=== PATIENT | female | born 1950 | race Caucasian/White ===

== ENCOUNTER → 2016-09-19 | Outpatient (CLI) | payer BC ==
--- NOTE | 2016-09-19 08:52 | REPMRS ---
Patient History The patient states she had a clinical breast exam in 09/2016. Family history of breast cancer in paternal cousin at age 50 or over. Took hormonal contraceptives for 1 year. Digital Woman Screen Mammo: September 19, 2016 - Exam #: [id number] Bilateral CC and MLO view(s) were taken. Technologist: Iris De Leon, Technologist Prior study comparison: September 18, 2015, digital woman screen mammo performed at [facility]. September 16, 2014, digital woman screen mamm[facility]. August 09, 2013, digital woman screen mammo performed at [facility]. FINDINGS: There are scattered fibroglandular densities. There has been no change in the appearance of the mammogram from the prior studies. There is a mild amount of scattered fibroglandular density which is fairly symmetric. There is no interval development of dominant mass, architectural distortion, or clustered microcalcification suggestive of malignancy. ASSESSMENT: BI-RADS/ACR category 1 mammogram. Negative. Recommendation Routine screening mammogram in 1 year (for women over age 40). This mammogram was interpreted with the aid of an FDA-approved computer-aided dectection system. Electronically Signed By: Marcelo Gaspar MD 09/19/16 0851
== END ==
LOC: M WHC 08:01
PROVIDERS: ATTEND Nurse Practitioner Women's Health
DX: Z12.31 Encounter for screening mammogram for malignant neoplasm of breast (principal); Z80.3 Family history of malignant neoplasm of breast; Z92.0 Personal history of contraception

== ENCOUNTER → 2017-02-28 | Outpatient (CLI) | payer BC, MEDICARE ==
--- NOTE | 2017-02-28 17:14 | REP ---
Left foot series: Four views: History: Pain. Findings: Four views of the left foot show overall normal mineralization. No bony erosive change is seen. No fracture is noted. There is soft tissue swelling along the medial aspect of the IP joint of the great toe with an overlying dressing. No soft tissue gas or opaque foreign body seen. Impression: No acute abnormality. Signed by Lawson Gaspar MD 03/01/2017 08:01 A
== END ==
LOC: M WUC 16:42
PROVIDERS: ATTEND Nurse Practitioner Family
DX: M79.672 Pain in left foot (principal)

== ENCOUNTER → 2017-03-10 | Outpatient (REF) | payer BC, MEDICARE ==
[2017-03-10 13:53] LABS: ALBUMIN 4.1 GM/DL (3.2-5.2); ALBUMIN/GLOBULIN RATIO 1.32 (1.00-1.93); ALKALINE PHOSPHATASE 73 U/L (45-117); ALT/SGPT 42 U/L (12-78); ANION GAP 10 MEQ/L (8-16); AST/SGOT 18 U/L (15-37); BILIRUBIN,TOTAL 0.3 MG/DL (0.2-1.0); BLOOD UREA NITROGEN 10 MG/DL (7-18); CALCIUM LEVEL 8.7 MG/DL (8.8-10.2); CARBON DIOXIDE LEVEL 26 MEQ/L (21-32); CHLORIDE LEVEL 107 MEQ/L (98-107); CHOLESTEROL LEVEL 208 MG/DL (<200); CREATININE FOR GFR 0.68 MG/DL (0.55-1.02); GLOMERULAR FILTRATION RATE > 60.0 (>45); GLUCOSE, FASTING 97 MG/DL (80-110); POTASSIUM SERUM 4.7 MEQ/L (3.5-5.1); SODIUM LEVEL 143 MEQ/L (136-145); TOTAL PROTEIN 7.2 GM/DL (6.4-8.2); TRIGLYCERIDES LEVEL 154 MG/DL (<150)
== END ==
LOC: M LAB REF 11:13
PROVIDERS: ATTEND Nurse Practitioner Family
DX: E78.2 Mixed hyperlipidemia (principal); E55.9 Vitamin D deficiency, unspecified

== ENCOUNTER → 2017-09-21 | Outpatient (CLI) | payer MEDICARE | LOC: M WHC 08:12 | DX: Z78.0 Asymptomatic menopausal state (principal); R93.7 Abnormal findings on diagnostic imaging of other parts of musculoskeletal system | CPT/HCPCS: 77080 ==

== ENCOUNTER → 2017-09-21 | Outpatient (CLI) | payer MEDICARE | LOC: M WHC 08:07 | DX: Z12.31 Encounter for screening mammogram for malignant neoplasm of breast (principal); Z01.419 Encounter for gynecological examination (general) (routine) without abnormal findings (principal); Z92.0 Personal history of contraception; Z12.12 Encounter for screening for malignant neoplasm of rectum; Z78.0 Asymptomatic menopausal state | CPT/HCPCS: 77067 ==

== ENCOUNTER → 2018-04-12 | Outpatient (REF) | payer MEDICARE ==
[2018-04-12 12:17] LABS: ALBUMIN 4.1 GM/DL (3.2-5.2); ALBUMIN/GLOBULIN RATIO 1.41 (1.00-1.93); ALKALINE PHOSPHATASE 76 U/L (45-117); ALT/SGPT 33 U/L (12-78); ANION GAP 8 MEQ/L (8-16); AST/SGOT 21 U/L (7-37); BILIRUBIN,TOTAL 0.6 MG/DL (0.2-1.0); BLOOD UREA NITROGEN 12 MG/DL (7-18); CALCIUM LEVEL 9.2 MG/DL (8.8-10.2); CARBON DIOXIDE LEVEL 29 MEQ/L (21-32); CHLORIDE LEVEL 105 MEQ/L (98-107); CHOLESTEROL LEVEL 230 MG/DL (<200); CHOLESTEROL RISK RATIO 3.965 (<5); CREATININE FOR GFR 0.71 MG/DL (0.55-1.30); GLOMERULAR FILTRATION RATE > 60.0 (>45); GLUCOSE, FASTING 94 MG/DL (70-100); HDL CHOLESTEROL 58 MG/DL (>40); LDL CHOLESTEROL 126 MG/DL (<100); NON-HDL-C 172 MG/DL; POTASSIUM SERUM 4.5 MEQ/L (3.5-5.1); SODIUM LEVEL 142 MEQ/L (136-145); TRIGLYCERIDES LEVEL 229 MG/DL (<150)
[2018-04-12 12:18] LABS: TOTAL 25(OH) VITAMIN D 26.9 NG/ML (30.0-100.0)
== END ==
LOC: M SFHCCLAY 07:15
DX: E78.2 Mixed hyperlipidemia (principal); E55.9 Vitamin D deficiency, unspecified
CPT/HCPCS: 80053

== ENCOUNTER → 2018-10-01 | Outpatient (CLI) | payer MEDICARE ==
--- NOTE | 2018-10-01 09:18 | REPMRS ---
Patient History The patient states she had a clinical breast exam in 09/2018. Family history of breast cancer at age 50 or over in paternal cousin, colorectal cancer under age 50 in maternal cousin. Took hormonal contraceptives for 1 year. 3D TOMOSYNTHESIS WAS PERFORMED. Digital Woman Screen Mammo: October 01, 2018 - Exam #: [id number] Bilateral CC and MLO view(s) were taken. Technologist: Dorita Griggs, Technologist Prior study comparison: September 21, 2017, digital woman screen mammo performed at [facility]. September 19, 2016, digital woman screen mammo performed at [facility] to [facility]. FINDINGS: There are scattered fibroglandular densities. There has been no change in the appearance of the mammogram from the prior studies. There is a mild amount of residual fibroglandular tissue which is fairly symmetric. There is no interval development of dominant mass, architectural distortion, or clustered microcalcification suggestive of malignancy. Assessment: BI-RADS/ACR category 1 mammogram. Negative Mammogram. Recommendation Routine screening mammogram in 1 year (for women over age 40). This mammogram was interpreted with the aid of an FDA-approved computer-aided dectection system. Electronically Signed By: Theodore Crenshaw MD 10/01/18 0918
== END ==
LOC: M WHC 08:12
PROVIDERS: ATTEND Nurse Practitioner Women's Health
DX: Z12.31 Encounter for screening mammogram for malignant neoplasm of breast (principal); Z92.0 Personal history of contraception

== ENCOUNTER → 2019-03-14 | Outpatient (CLI) | payer MEDICARE ==
--- NOTE | 2019-03-14 09:04 | REP ---
Clinical: Low back pain. Technique: AP, lateral, bilateral oblique and coned-down views of the lumbosacral spine. Findings: Moderate multilevel degenerative changes includes endplate sclerosis, early osteophytosis, hypertrophic facet changes and disc space narrowing. Straightening of normal lordosis is nonspecific. There is no evidence for acute fracture / compression injury or subluxation. Impression: Moderate multilevel degenerative spondylosis. Electronically Signed by Hank Mena MD 03/14/2019 08:56 A
--- NOTE | 2019-03-14 09:06 | REP ---
Clinical: Back and hip pain. Technique: AP view of the pelvis with neutral and frog lateral views of the right and left hip. Findings: Frontal view of the pelvis demonstrates no acute fracture dislocation. Right hip demonstrates age-related increased sclerosis to the acetabular roof with subtle marginal spurring and mild joint space narrowing. No chondrocalcinosis, periarticular calcifications or loose bodies are identified. No acute fracture or dislocation. Left hip demonstrates age-related increased sclerosis to the acetabular roof with subtle marginal spurring and minimal joint space narrowing. No chondrocalcinosis, periarticular calcifications or loose bodies are identified. No acute fracture or dislocation. Impression: Essentially age-related degenerative changes. Electronically Signed by Hank Mena MD 03/14/2019 08:58 A
== END ==
LOC: M WUC 08:30
PROVIDERS: ATTEND Nurse Practitioner Family
DX: M16.0 Bilateral primary osteoarthritis of hip (principal); M47.897 Other spondylosis, lumbosacral region; M25.551 Pain in right hip; M54.42 Lumbago with sciatica, left side

== ENCOUNTER → 2019-04-16 | Outpatient (REF) | payer MEDICARE ==
[2019-04-16 12:40] LABS: ALT/SGPT 34 U/L (12-78); BILIRUBIN,TOTAL 0.4 MG/DL (0.2-1.0); BLOOD UREA NITROGEN 10 MG/DL (7-18); CALCIUM LEVEL 9.1 MG/DL (8.8-10.2); CARBON DIOXIDE LEVEL 32 MEQ/L (21-32); CHLORIDE LEVEL 104 MEQ/L (98-107); CHOLESTEROL LEVEL 221 MG/DL (<200); CHOLESTEROL RISK RATIO 3.507 (<5); CREATININE FOR GFR 0.73 MG/DL (0.55-1.30); GLOMERULAR FILTRATION RATE > 60.0 (>45); GLUCOSE, FASTING 101 MG/DL (70-100); HDL CHOLESTEROL 63 MG/DL (>40); LDL CHOLESTEROL 111 MG/DL (<100); NON-HDL-C 158 MG/DL; POTASSIUM SERUM 4.3 MEQ/L (3.5-5.1); SODIUM LEVEL 140 MEQ/L (136-145); TOTAL PROTEIN 7.2 GM/DL (6.4-8.2); TRIGLYCERIDES LEVEL 236 MG/DL (<150)
[2019-04-16 13:27] LABS: TOTAL 25(OH) VITAMIN D 35.1 NG/ML (30.0-100.0)
== END ==
LOC: M SFHCCLAY 07:27
PROVIDERS: ATTEND Nurse Practitioner Family
DX: E78.2 Mixed hyperlipidemia (principal); E55.9 Vitamin D deficiency, unspecified

== ENCOUNTER → 2019-07-06 | Outpatient (CLI) | payer MEDICARE ==
--- NOTE | 2019-07-08 18:27 | REP ---
MRI left foot without contrast: History: Pain in the left foot. Pain for mass 11 feet. Evaluate anterior process. Comparison foot radiographs are from February 28, 2017. Technique: A vitamin E capsules are affixed to the skin marking the site of symptoms and concern. Axial, coronal, and sagittal imaging planes utilized. T1 and T2-weighted scans were obtained without fat saturation. MRI findings: Cortical and medullary bone signal intensity are normal. There is a small quantity of fluid surrounding a os trigonum at the posterior aspect of the ankle. There is some fluid at the talonavicular articulation. The anterior aspect of the calcaneus is unremarkable. No abnormalities noted in the cuboid bone. Plantar fascia appears smooth. The Achilles tendon is normal in caliber, signal intensity, and course. There is no evidence of ligament disruption. No juxtaarticular cyst or mass is seen. No flexor or extensor tendinopathy is appreciated. No soft tissue mass is seen at the level of the markers or elsewhere. Impression: Some fluid at the talonavicular and ankle articulations. Otherwise negative MRI study of the left foot. Electronically Signed by Lawson Gaspar MD 07/08/2019 06:19 P
== END ==
LOC: M RAD 11:41
PROVIDERS: ATTEND Orthopaedic Surgery
DX: M79.672 Pain in left foot (principal)

== ENCOUNTER → 2019-11-05 | Outpatient (REF) | payer MEDICARE ==
[2019-11-05 11:27] LABS: ALT/SGPT 26 U/L (12-78); BILIRUBIN,TOTAL 0.5 MG/DL (0.2-1.0); BLOOD UREA NITROGEN 8 MG/DL (7-18); CALCIUM LEVEL 9.2 MG/DL (8.8-10.2); CARBON DIOXIDE LEVEL 26 MEQ/L (21-32); CHLORIDE LEVEL 106 MEQ/L (98-107); CHOLESTEROL LEVEL 172 MG/DL (<200); CHOLESTEROL RISK RATIO 2.866 (<5); CREATININE FOR GFR 0.72 MG/DL (0.55-1.30); GLOMERULAR FILTRATION RATE > 60.0 (>45); GLUCOSE, FASTING 94 MG/DL (70-100); HDL CHOLESTEROL 60 MG/DL (>40); LDL CHOLESTEROL 93 MG/DL (<100); NON-HDL-C 112 MG/DL; POTASSIUM SERUM 4.1 MEQ/L (3.5-5.1); SODIUM LEVEL 140 MEQ/L (136-145); TRIGLYCERIDES LEVEL 97 MG/DL (<150)
[2019-11-05 11:34] LABS: TOTAL 25(OH) VITAMIN D 60.7 NG/ML (30.0-100.0)
== END ==
LOC: M SFHCCLAY 08:24
PROVIDERS: ATTEND Nurse Practitioner Family
DX: E78.2 Mixed hyperlipidemia (principal); E55.9 Vitamin D deficiency, unspecified

== ENCOUNTER → 2020-02-11 | Outpatient (CLI) | payer MEDICARE ==
--- NOTE | 2020-03-04 08:26 | REPMRS ---
Patient History The patient states she had a clinical breast exam in 02/2020. Family history of breast cancer at age 50 or over in paternal cousin, colorectal cancer under age 50 in maternal cousin. Took hormonal contraceptives for 1 year. Digital Woman Screen Mammo: February 11, 2020 - Exam #: [id number] Bilateral CC and MLO view(s) were taken. Technologist: Kristal Ortega, Technologist Prior study comparison: October 01, 2018, bilateral digital woman screen mammo performed at [facility]. September 21, 2017, digital woman screen mammo performed at [facility]. September 19, 2016, digital woman screen mammo performed at [facility]. FINDINGS: There are scattered fibroglandular densities. The Volpara volumetric breast density category is:B. There has been no change in the appearance of the mammogram from the prior studies. There is a mild amount of scattered fibroglandular density which is fairly symmetric. There is no interval development of dominant mass, architectural distortion, or grouped microcalcification suggestive of malignancy. 3-D tomosynthesis shows no additional findings. Assessment: BI-RADS/ACR category 1 mammogram. Negative Mammogram. Recommendation Routine screening mammogram of both breasts in 1 year (for women over age 40). This patient's Lifetime Breast Cancer Risk is estimated at 6.3 %. This mammogram was interpreted with the aid of an FDA-approved computer-aided dectection system. Electronically Signed By: Marcelo Gaspar MD 03/04/20 0801
== END ==
LOC: M WHC 17:41
PROVIDERS: ATTEND Nurse Practitioner Women's Health
DX: Z12.31 Encounter for screening mammogram for malignant neoplasm of breast (principal); Z92.0 Personal history of contraception
CPT/HCPCS: 77063; 77067; G0463

== ENCOUNTER → 2020-04-07 | Outpatient (REF) | payer MEDICARE ==
[2020-04-07 12:53] LABS: ALBUMIN 3.9 GM/DL (3.2-5.2); ALT/SGPT 22 U/L (12-78); BILIRUBIN,TOTAL 0.5 MG/DL (0.2-1.0); BLOOD UREA NITROGEN 10 MG/DL (7-18); CARBON DIOXIDE LEVEL 30 MEQ/L (21-32); CHLORIDE LEVEL 105 MEQ/L (98-107); CHOLESTEROL LEVEL 164 MG/DL (<200); CHOLESTEROL RISK RATIO 2.562 (<5); CREATININE FOR GFR 0.62 MG/DL (0.55-1.30); GLOMERULAR FILTRATION RATE > 60.0 (>45); GLUCOSE, FASTING 96 MG/DL (70-100); HDL CHOLESTEROL 64 MG/DL (>40); LDL CHOLESTEROL 85 MG/DL (<100); NON-HDL-C 100 MG/DL; POTASSIUM SERUM 4.3 MEQ/L (3.5-5.1); SODIUM LEVEL 138 MEQ/L (136-145); TOTAL PROTEIN 6.7 GM/DL (6.4-8.2); TRIGLYCERIDES LEVEL 76 MG/DL (<150)
[2020-04-07 13:01] LABS: TOTAL 25(OH) VITAMIN D 63.9 NG/ML (30.0-100.0)
== END ==
LOC: M LABDRAWC 11:15
PROVIDERS: ATTEND Nurse Practitioner Family
DX: E78.2 Mixed hyperlipidemia (principal); E55.9 Vitamin D deficiency, unspecified

== ENCOUNTER → 2020-06-29 | Outpatient (CLI) | payer SELFPAY | LOC: M LABSMTC 12:50 | PROVIDERS: ATTEND Pediatrics | DX: Z20.828 Contact with and (suspected) exposure to other viral communicable diseases (principal) ==

== ENCOUNTER → 2020-09-29 | Outpatient (REF) | payer MEDICARE ==
[2020-09-29 11:47] LABS: ALBUMIN 4.1 GM/DL (3.2-5.2); ALT/SGPT 20 U/L (12-78); BILIRUBIN,TOTAL 0.5 MG/DL (0.2-1.0); BLOOD UREA NITROGEN 11 MG/DL (7-18); CALCIUM LEVEL 9.1 MG/DL (8.8-10.2); CARBON DIOXIDE LEVEL 32 MEQ/L (21-32); CHLORIDE LEVEL 108 MEQ/L (98-107); CREATININE FOR GFR 0.61 MG/DL (0.55-1.30); GLOMERULAR FILTRATION RATE > 60.0 (>45); GLUCOSE, FASTING 96 MG/DL (70-100); POTASSIUM SERUM 4.2 MEQ/L (3.5-5.1); SODIUM LEVEL 142 MEQ/L (136-145); TOTAL PROTEIN 6.7 GM/DL (6.4-8.2)
[2020-09-29 11:55] LABS: TOTAL 25(OH) VITAMIN D 64.5 NG/ML (30.0-100.0)
== END ==
LOC: M SFHCCLAY 07:22
PROVIDERS: ATTEND Nurse Practitioner Family
DX: E78.2 Mixed hyperlipidemia (principal); E55.9 Vitamin D deficiency, unspecified

== ENCOUNTER 2020-12-03 02:17 | Inpatient (IN) | payer MEDICARE ==
[~2020-12-03] VITALS: Ht 167.6 cm; Wt 50.0 kg
[2020-12-03 03:00] VITALS: BP 152/79
[2020-12-03] MEDS ORDERED: LIVA2TAB PO (04:06)
[2020-12-03] MEDS ORDERED: VITA500T73 PO (04:06)
[2020-12-03] MEDS ORDERED: OYST500T92 PO (04:06)
[2020-12-03] MEDS ORDERED: VITA500075 PO (04:06)
--- NOTE | 2020-12-03 04:36 | HPEPDOC ---
[facility] Medical History & Physical Date of Admission December 03, 2020 Date of Service: December 03, 2020 History and Physical CHIEF COMPLAINT: abdominal pain HISTORY OF PRESENT ILLNESS: 69 yo F, transferred from [facility] for evaluation of sigmoid volvulus. Patient presented presented to [facility] after she noticed worsening abdominal pain in the LLQ and epigastrium at ~6 pm yesterday evening, radiating to the L flank and back. Pain reaches 10/10 at its peak. Associated with one episode on NBNB vomitus. Patient had a BM in the past 12 hours, and has been passing gas. CT abdomen at [facility] showed possible early or developing sigmoid volvulus. Patient was transfer for surgical eval to [facility]. OSH labs reviewed. WBC13.3. Hgb 12.8. PLT 321. Trop < 0.02. TSH elevated at 7.68. AST 16. ALTT 24. T bili 0.4. Lipase 120. Pain was treated with fentanyl. LA not checked. Patient will be admitted to hospitalist service with surgical consultation. PAST MEDICAL HISTORY: Hypercholesterolemia PAST SURGICAL HISTORY: Tonsillectomy Hysterectomy R knee arthroscopy SOCIAL HISTORY: Denies smoking Denies etoh use Denies illicit drug use FAMILY HISTORY: Brother - brain mass Mother - [place] age 60, age 85, Parkinson's. ALLERGIES: Please see below. REVIEW OF SYSTEMS: 10 point ROS completed, relevant findings are noted in HPI. HOME MEDICATIONS: Please see below. PHYSICAL EXAMINATION: VITAL SIGNS: please see below General: NAD, comfortable HEENT: PERRLA, EOMI, sclerae clear Neck: supple, normal ROM, no JVD Respiratory: lungs CTAB, no wheeze, no rales, no crackles CVS: RRR, normal S1, S2, no murmurs Abdo: Diffusely tender to palpation. No rebound tenderness, no rigidity, no guarding. Extremities: no edema, pulses 2+ MSK: no joint deformities, normal ROM Neuro: no focal neuro deficits, moving all 4 extremities, CN2-12 intact. Strength 5/5 in all 4 extremities. No nystagmus. Psych: calm, cooperative, AAO x 3 LABORATORY DATA: See below. IMAGING: CT abdo pelvis with IV contrast (12/02/20) at [facility]: Impression:"1. Findings consistent with patial or developing sigmoid volvulus with transition point in the mid sigmoid colon. The colon from the splenci flexure to the sigmoid colon is markedly distended with stool and gas. 2. Small amount of free fluid." MICROBIOLOGY: Please see below. ASSESSMENT: 69 yo F, transferred from [facility] for evaluation of sigmoid volvulus. Patient presented presented to [facility] after she noticed worsening abdominal pain in the LLQ and epigastrium at ~6 pm yesterday evening, radiating to the L flank and back. Pain reaches 10/10 at its peak. Associated with one e pisode on NBNB vomitus. Patient had a BM in the past 12 hours, and has been passing gas. CT abdomen at [facility] showed possible early or developing sigmoid volvulus. Patient was transfer for surgical eval to [facility]. . PLAN: Abdominal pain possibly 2/2 sigmoid volvulus - check CBC, CMP, Lactic acid - check KUB - surgery consulted, Dr. Kennedy - keep patient NPO - LR IV at 125 cc/hr - pain control with morphine for breakthrough, tylenol Hypothyroidism - noted elevated TSH to 7.4 - check FT4 Hypercholesterolemia - c/w statin DVT ppx: SCDs. TEDs. Home Medications Scheduled Calcium Carbonate/Vitamin D3 (Calcium 500-Vit D3 200 Tablet) 1 Each Tablet, 1 TAB PO DAILY TAKES AT LUNCHTIME Cholecalciferol (Vitamin D3) (Vitamin D3) 125 Mcg Capsule, 125 MCG PO DAILY TAKES AT LUNCHTIME Cyanocobalamin (Vitamin B-12) (Vitamin B-12) 500 Mcg Tablet, 500 MCG PO DAILY TAKES AT LUNCHTIME Pitavastatin Calcium (Livalo) 2 Mg Tablet, 2 MG PO QHS Allergies Coded Allergies: No Known Allergies (Verified Allergy, Unknown, 12/03/20) A-FIB/CHADSVASC A-FIB History Current/History of A-Fib/PAF?: No VIC BAZAN MD December 03, 2020 04:36
[2020-12-03] MEDS ORDERED: MAALOX 30 ML SUSP *UDC PO PRN (04:40)
[2020-12-03] MEDS ORDERED: ACETAMINOPHEN TAB 650MG DOSE (2X325MG) PO PRN (04:40)
[2020-12-03] MEDS ORDERED: MORPHINE 4 MG/ML 1ML VIAL/SYRINGE (J2270) IV PRN (04:40)
[2020-12-03] MEDS ORDERED: ONDANSETRON 4MG/2ML VIAL IV PRN (04:40)
[2020-12-03] MEDS ORDERED: MOM 30ML SUSPENSION UDC PO PRN (04:40)
[2020-12-03] MEDS: LR 1,000 ML IV SCH ×3 (05:25→21:27)
[2020-12-03 05:40] LABS: BASO % 0.2 % (0.0-1.0); EOS % 0.2 % (0.0-3.0); HEMATOCRIT 34.5 % (36.0-47.0); HEMOGLOBIN 11.8 g/dl (12.0-15.5); LYMPH # 0.8 10^3/uL (1.5-5.0); LYMPH % 7.6 % (24.0-44.0); MEAN CORPUSCULAR HEMOGLOBIN 31.7 pg (27.0-33.0); MEAN CORPUSCULAR HGB CONC 34.2 g/dl (32.0-36.5); MEAN CORPUSCULAR VOLUME 92.7 fl (80.0-96.0); MONO # 0.4 10^3/uL (0.0-0.8); MONO % 4.4 % (2.0-8.0); NEUTROPHILS # 8.6 10^3/uL (1.5-8.5); NEUTROPHILS % 87.3 % (36.0-66.0); PLATELET COUNT, AUTOMATED 258 10^3/uL (150-450); RED BLOOD COUNT 3.72 10^6/uL (4.00-5.40); WHITE BLOOD COUNT 9.8 10^3/uL (4.0-10.0)
[2020-12-03 05:53] LABS: INR 1.03; PROTHROMBIN TIME 13.7 SECONDS (12.5-14.3)
[2020-12-03 06:00] VITALS: BP 114/60
[2020-12-03 06:12] LABS: ALBUMIN 3.4 GM/DL (3.2-5.2); ALT/SGPT 19 U/L (12-78); BILIRUBIN,TOTAL 0.4 MG/DL (0.2-1.0); BLOOD UREA NITROGEN 7 MG/DL (7-18); CALCIUM LEVEL 8.4 MG/DL (8.8-10.2); CARBON DIOXIDE LEVEL 25 MEQ/L (21-32); CHLORIDE LEVEL 106 MEQ/L (98-107); CREATININE FOR GFR 0.57 MG/DL (0.55-1.30); FREE T4 0.97 NG/DL (0.76-1.46); GLOMERULAR FILTRATION RATE > 60.0 (>45); GLUCOSE, FASTING 123 MG/DL (70-100); MAGNESIUM LEVEL 1.8 MG/DL (1.8-2.4); POTASSIUM SERUM 3.9 MEQ/L (3.5-5.1); SODIUM LEVEL 137 MEQ/L (136-145); TOTAL PROTEIN 6.2 GM/DL (6.4-8.2)
--- NOTE | 2020-12-03 07:37 | IPNPDOC ---
Text Note Date of Service The patient was seen on 12/03/20. NOTE Patient seen and examined. Full consult to follow. She was transferred here for possible sigmoid colon volvulus. The history does not really coincide with typical volvulus presentation. At the time that I saw her, very comfortable, reports pain is 0 after she got some pain meds earlier today. Abdominal exam is benign, not distended, minimal discomfort on deep palpation over the lower abdomen without guarding. Her labs here are normal. I will review her outside studies and come back for further recommendations. NPO for now. I dont think she needs any urgent or emergent intervention at this point. VS,Fishbone, I+O VS, Fishbone, I+O Laboratory Tests 12/03/20 05:30 Vital Signs Date Time Temp Pulse Resp B/P (MAP) Pulse Ox O2 Delivery O2 Flow Rate FiO2 12/03/20 05:36 16 Room Air I&O- Last 24 Hours up to 6 AM 12/03/20 06:00 Intake Total 62.5 ml Balance 62.5 ml TRE LOPEZ MD December 03, 2020 07:37
[2020-12-03] MEDS: DOCUSATE SODIUM 100MG CAPSULE PO SCH ×2 (09:00→21:26)
[2020-12-03] MEDS ORDERED: LIQUID POLIBAR PLUS 105% w/v 1900ML BTL As Ordered ONE (11:28)
[2020-12-03] MEDS ORDERED: GASTROGRAFIN SOLUTION 30ML (Q9963) As Ordered ONE ×2 (11:37→12:40)
--- NOTE | 2020-12-03 13:10 | IPNPDOC ---
Subjective Date Seen The patient was seen on 12/03/20. Subjective Chief Complaint/HPI Mrs. Hough is a 69 year old female who was transferred from [facility] to here for evaluation of sigmoid volvulus. She was seen in the morning. She had morphine which helped controlled her abdominal pain. Otherwise denies chest pain or dyspnea. Objective Physical Examination General Exam: Positive: Alert, Cooperative Eye Exam: Positive: EOMI; Negative: Sclera icteric ENT Exam: Positive: Atraumatic Neck Exam: Positive: Supple Chest Exam: Positive: Clear to auscultation; Negative: Rales, Rhonchi, Wheezing Heart Exam: Positive: Rate Normal, Regular Rhythm Abdomen Exam: Positive: BS Hypoactive, Tenderness Extremity Exam: Negative: Edema Neuro Exam: Positive: Normal Speech Psych Exam: Positive: Mental status NL, Mood NL Assessment /Plan Assessment Mrs. Hough is a 69 year old female who was transferred from [facility] to here for evaluation of sigmoid volvulus. General surgery following, recommendations appreciated. Patient will be kept NPO at this time. Otherwise, patient had an elevated TSH but normal free T4. Patient may need to have thyroid function tests retested when not ill. Plan/VTE VTE Prophylaxis Ordered?: Yes Plan 1. Abdominal pain 2/2 sigmoid volvulus -General surgery following, recommendations appreciated -NPO and LR -Pain controlled with acetaminophen and morphine 2. Abnormal thyroid test -TSH elevated, but Free T4 within normal limits -Patient should be tested again when not ill -Monitor at this time 3. Hypercholesterolemia -Holding statin at this time due to NPO status 4. DVT ppx -TEDs Disposition: Pending clinical improvement and general surgery recommendations VS, I&O, 24H, Regulobone Vital Signs/I&O Vital Signs Date Time Temp Pulse Resp B/P (MAP) Pulse Ox O2 Delivery O2 Flow Rate FiO2 12/03/20 06:00 97.8 60 16 114/60 (78) 98 Room Air I&O- Last 24 Hours up to 6 AM 12/03/20 06:00 Intake Total 62.5 ml Output Total 0 ml Balance 62.5 ml Laboratory Data 24H LABS Laboratory Tests 2 12/03/20 05:30: Immature Granulocyte % (Auto) 0.3, Neutrophils (%) (Auto) 87.3H, Lymphocytes (%) (Auto) 7.6L, Monocytes (%) (Auto) 4.4, Eosinophils (%) (Auto) 0.2, Basophils (%) (Auto) 0.2, Neutrophils # (Auto) 8.6H, Lymphocytes # (Auto) 0.8L, Monocytes # (Auto) 0.4, Eosinophils # (Auto) 0.0, Basophils # (Auto) 0.0, Nucleated Red Blood Cells % (auto) 0.0, Prothrombin Time 13.7, Prothromb Time International Ra rusty 1.03, Anion Gap 6L, Glomerular Filtration Rate > 60.0, Lactic Acid Level 1.1, Calcium Level 8.4L, Magnesium Level 1.8, Total Bilirubin 0.4, Aspartate Amino Transf (AST/SGOT) 13, Alanine Aminotransferase (ALT/SGPT) 19, Alkaline Phosphatase 64, Total Protein 6.2L, Albumin 3.4, Albumin/Globulin Ratio 1.2, Free Thyroxine 0.97 12/03/20 06:08: Coronavirus (COVID-19)(PCR) NEGATIVE CBC/BMP Laboratory Tests 12/03/20 05:30 GUILLERMO BLAIR DO December 03, 2020 13:10
[2020-12-03 14:00] VITALS: BP 131/67
--- NOTE | 2020-12-03 15:09 | REP ---
INDICATION: VOLVULUS. COMPARISON: None. TECHNIQUE: KUB: Single view. FINDINGS: There is a large amount of left colonic stool. There is an air-filled nondilated loop of colon vertically oriented in the right abdomen. This may be transverse or sigmoid segment. It is not pathologically dilated. Otherwise negative. IMPRESSION: Large amount of left colonic stool. <Electronically signed by Marcelo Gaspar > 12/03/20 [id number]
[2020-12-03] MEDS ORDERED: MOM 30ML SUSPENSION UDC PO ONE (16:05)
[2020-12-03 22:00] VITALS: BP 128/74
[2020-12-04 06:00] VITALS: BP 130/67
[2020-12-04 07:11] LABS: HEMATOCRIT 32.5 % (36.0-47.0); HEMOGLOBIN 10.7 g/dl (12.0-15.5); MEAN CORPUSCULAR HEMOGLOBIN 31.6 pg (27.0-33.0); MEAN CORPUSCULAR HGB CONC 32.9 g/dl (32.0-36.5); MEAN CORPUSCULAR VOLUME 95.9 fl (80.0-96.0); PLATELET COUNT, AUTOMATED 215 10^3/uL (150-450); RED BLOOD COUNT 3.39 10^6/uL (4.00-5.40); WHITE BLOOD COUNT 5.4 10^3/uL (4.0-10.0)
[2020-12-04 07:37] LABS: BLOOD UREA NITROGEN 6 MG/DL (7-18); CALCIUM LEVEL 8.2 MG/DL (8.8-10.2); CARBON DIOXIDE LEVEL 30 MEQ/L (21-32); CHLORIDE LEVEL 109 MEQ/L (98-107); CREATININE FOR GFR 0.59 MG/DL (0.55-1.30); GLOMERULAR FILTRATION RATE > 60.0 (>45); GLUCOSE, FASTING 87 MG/DL (70-100); SODIUM LEVEL 143 MEQ/L (136-145)
--- NOTE | 2020-12-04 07:50 | REP ---
INDICATION: hypaque enema, r/o sigmoid obstruction, stricture, poss vol. COMPARISON: None. TECHNIQUE: The procedure was performed under the direct supervision of Dr. Gaspar. The images were reviewed with Dr. Gaspar. A 50 50 solution of Gastrografin and water was instilled into the colon in a retrograde flow. The contrast was advanced to the level of the splenic flexure. 3.3 minutes of fluoroscopy time was utilized for this procedure. FINDINGS: Images demonstrate redundant but unobstructed sigmoid colon with no evidence of sigmoid volvulus or other colonic obstruction. There is a large amount of stool. IMPRESSION: Limited Gastrografin enema demonstrates redundant but unobstructed sigmoid colon with no evidence of sigmoid volvulus or other colonic obstruction. There is a large amount of stool. <Electronically signed by Alfredo Shah > 12/03/20 1715 <Electronically signed by Marcelo Gaspar > 12/04/20 [id number]
[2020-12-04] MEDS: DOCUSATE SODIUM 100MG CAPSULE PO SCH (08:35)
[2020-12-04] MEDS ORDERED: DOK1CAP7 PO (10:00)
--- NOTE | 2020-12-04 10:10 | IPNPDOC ---
Text Note Date of Service The patient was seen on 12/04/20. NOTE I came back later in the day yesterday and her was with her. I reviewed the barium enema studies though this was not read at that time. I did not see any evidence of volvulus nor any strictures or masses at the level of the sigmoid colon. She does have a very redundant and tortuous sigmoid colon which may have put her at risk for volvulus. She also has a large solid column of stools at the descending colon. She has mostly resolve her symptoms and is not complaining of any discomfort at this time. Have started her on clears last night. She continues to do well and denies any abdominal discomfort at this time that I saw her this morning. Advance her to regular diet. Final read on the barium enema confirms my initial impression. No volvulus was found. On examination She looks very comfortable. She is denying any discomfort, nausea. She is ambulating her room independently without any discomfort her abdomen is mostly flat, soft, nondistended and nontender Impression and plan Constipation Tortuous sigmoid colon possibly transient volvulus Plan Have advance her to a regular diet. She can be discharged home and follow up with me. I plan to perform colonoscopy. Her last colonoscopy was more than 9 years ago we do not have a copy of this as this was done somewhere else. There were no signs of any masses or severe strictures on the barium enema. I suspect she did have a transient sigmoid volvulus that she resolved by herself. Given the configuration of her sigmoid colon may be at risk for recurrence. She also looks to be constipated though she is telling me that she is able to pass bowel movements spontaneously without any laxatives or stool softeners. Suggest keep her on at least some stool softeners and put her on a high-fiber diet. VS,Fishbone, I+O VS, Fishbone, I+O Laboratory Tests 12/04/20 06:51 Vital Signs Date Time Temp Pulse Resp B/P (MAP) Pulse Ox O2 Delivery O2 Flow Rate FiO2 12/04/20 06:00 97.5 55 16 130/67 (88) 96 Room Air I&O- Last 24 Hours up to 6 AM 12/04/20 06:00 Intake Total 3660 ml Output Total 500 ml Balance 3160 ml TRE LOPEZ MD December 04, 2020 10:10
--- NOTE | 2020-12-04 10:14 | CR.PDOC ---
General Surgery Consultation Date of Consultation 12/04/20 History and Physical CONSULT REPORT FOR: hospitalist service REASON FOR CONSULTATION: possible volvulus HISTORY OF PRESENT ILLNESS: Patient is a 69-year-old female, in her usual state of health when she had the sudden onset of epigastric pain and discomfort, nausea and vomiting after dinner yesterday evening. This prompted her to present herself hadn't were Hospital emergency department where she was worked up. She had a CT of the abdomen and pelvis that was done there and the radiologist was reading a possible early sigmoid a partial volvulus. She needed surgical evaluation she was transferred to our institution. When she first got here she reports she was in pain. She got a dose of morphine. By the time that I saw her she reports all her discomfort has resolved. She denies any bloating, nausea or vomiting. She has had no prior similar symptoms. She reports almost regular bowel movements though the size and consistency varies. She does not require any stool softeners or laxatives. She had colonoscopy about 9 years ago which was normal. She denies any unexplained weight loss, bleeding with bowel movements, difficulty in passing stool PAST MEDICAL HISTORY: 1. Hypothyroidism. PAST SURGICAL HISTORY: INCLUDES: 1. . PREVIOUS ANESTHESIA REACTIONS: ALLERGIES: Please see below. FAMILY HISTORY: . HOME MEDICATIONS: Please see below. REVIEW OF SYSTEMS: GENERAL: [Denies chills, reports weight gain, reports feeling febrile yesterday]. HEENT: [Denies blurred vision and double vision. Denies ear symptoms. Denies hoarseness]. NECK: Denies any neck pain]. CARDIOVASCULAR: [Denies chest pain and palpitations]. MUSCULOSKELETAL: [Denies arthralgias, back pain and thrombophlebitis]. SKIN: [Denies rash]. NEUROLOGIC: [Denies headache, stroke and transient ischemic attack]. PSYCHIATRIC: [Denies anxiety and depression]. ENDOCRINE: [Denies thyroid disease]. HEMATOLOGY/ONCOLOGY: [Denies bleeding or clotting disorder]. HEART: [Denies any chest pains, palpitations, paroxysmal dyspnea, orthopnea]. PULMONARY: [Denies chronic cough, dyspnea and wheezing]. GASTROINTESTINAL: [Denies rectal bleeding, family history of colon cancer, constipation, diarrhea, dysphagia, heartburn and jaundice]. GENITOURINARY: [Denies dysuria, frequency, hematuria and nocturia]. ENDOCRINE: [Denies polydipsia, polyphagia, polyuria, heat or cold intolerance]. INFECTIOUS: [Denies any recent upper respiratory tract infection, UTI, need for use of antibiotics]. NUTRITION: [Reports good appetite]. PHYSICAL EXAMINATION: VITALS SIGNS: Please see below. GENERAL APPEARANCE:[Patient seen, laying in bed, awake, alert, and oriented. Comfortable, in no acute distress]. SKIN: [Warm and moist]. HEENT: [Normocephalic, atraumatic. [place] palpebral conjunctiva, anicteric sclerae. Lips and mucosa appear moist]. NECK: [Supple, no thyromegaly. No obvious jugular venous distention]. LUNGS: [Clear to auscultation bilaterally. No wheezing appreciated]. HEART: [No chest wall abnormalities. Regular rate and rhythm with no murmurs appreciated]. ABDOMEN: Abdomen is , soft, . [No hepatosplenomegaly. No umbilical or groin herniations, nondistended. No noticeable rebound or guarding. No grimacing with palpation. No rebound tenderness. No masses appreciated]. EXTREMITIES: [Extremities have no deformities. No edema identified] ANCILLARIES: . LABORATORY DATA: Please see below. IMAGING STUDIES: She had a CT abdomen and pelvis. I reviewed the outside images was contained on a CD-ROM likewise have reviewed her course at [place] [facility] from her documentation that was with her admission. She does have a markedly distended left side of the colon which was full of stool. There was no perforation. There was no ascites. I could not confirm the presence of volvulus though she may have a very tortuous sigmoid colon. There still is some stool at the rectum. IMPRESSION AND PLAN: Sigmoid colon volvulus probably transient Constipation She may have resolved her volvulus by herself. She feels better now. She is denying any persistent symptoms. I have ordered a barium/Hypaque enema to further evaluate the possibility of the volvulus or any presence of stricture or masses in her sigmoid colon that wou ld've contributed to either a lead point or a point of obstruction. Further recommendations after the study. will follow along Vital Signs Vital Signs Date Time Temp Pulse Resp B/P (MAP) Pulse Ox O2 Delivery O2 Flow Rate FiO2 12/04/20 06:00 97.5 55 16 130/67 (88) 96 Room Air I&Os I&O- Last 24 Hours up to 6 AM 12/04/20 06:00 Intake Total 3660 ml Output Total 500 ml Balance 3160 ml Laboratory Data Labs 24H Laboratory Tests 2 12/04/20 06:51: Nucleated Red Blood Cells % (auto) 0.0, Anion Gap 4L, Glomerular Filtration Rate > 60.0, Calcium Level 8.2L CBC/BMP Laboratory Tests 12/04/20 06:51 Home Medications Scheduled Calcium Carbonate/Vitamin D3 (Calcium 500-Vit D3 200 Tablet) 1 Each Tablet, 1 TAB PO DAILY, (Reported) TAKES AT LUNCHTIME Cholecalciferol (Vitamin D3) (Vitamin D3) 125 Mcg Capsule, 125 MCG PO DAILY, (Reported) TAKES AT LUNCHTIME Cyanocobalamin (Vitamin B-12) (Vitamin B-12) 500 Mcg Tablet, 500 MCG PO DAILY, (Reported) TAKES AT LUNCHTIME Docusate Sodium (Dok) 100 Mg Capsule, 100 MG PO DAILY Pitavastatin Calcium (Livalo) 2 Mg Tablet, 2 MG PO QHS, (Reported) Allergies Coded Allergies: No Known Allergies (Verified Allergy, Unknown, 12/03/20) TRE LOPEZ MD December 04, 2020 10:14
--- NOTE | 2020-12-04 22:24 | DS.PDOC ---
Discharge Summary General Date of Admission December 03, 2020 at 03:45 Date of Discharge December 04, 2020 Specialist/Consultants Involve General Surgery, Dr. Kennedy Discharge Summary PROCEDURES PERFORMED DURING STAY: None ADMITTING DIAGNOSES: 1. Abdominal pain possibly 2/2 sigmoid volvulus 2. Abnormal thyroid test 3. Hypercholesterolemia DISCHARGE DIAGNOSES: 1. Tortuous sigmoid colon, possibly transient volvulus 2. Constipation 3. Abnormal thyroid test 4. Hypercholesterolemia COMPLICATIONS/CHIEF COMPLAINT: Sigmoid Volvulus Transition. HISTORY OF PRESENT ILLNESS: Copied from admitting physician's H&P " 69 yo F, transferred from [facility] for evaluation of sigmoid volvulus. Patient presented presented to [facility] after she noticed worsening abdominal pain in the LLQ and epigastrium at ~6 pm yesterday evening, radiating to the L flank and back. Pain reaches 10/10 at its peak. Associated with one episode on [employer]BN[employer] vomitus. Patient had a BM in the past 12 hours, and has been passing gas. CT abdomen at [facility] showed possible early or developing sigmoid volvulus. Patient was transfer for surgical eval to [facility]. OSH labs reviewed. WBC13.3. Hgb 12.8. PLT 321. Trop < 0.02. TSH elevated at 7.68. AST 16. ALTT 24. T bili 0.4. Lipase 120. Pain was treated with fentanyl. LA not checked. Patient will be admitted to hospitalist service with surgical consultation. " HOSPITAL COURSE: Patient did well during her hospitalization. General surgery evaluated patient and ordered barium enema. There was no obstruction and no signs of volvulus. There was a large amount of stool. She may have had a transient volvulus which resolved on it's own. She was put on stool softens and diet advanced. She did well with solid food and she had bowel movements. This morning, she felt well and felt ready for home. She was discharged home with instructions to follow up with general surgery for outpatient colonoscopy. DISCHARGE MEDICATIONS: Please see below. ALLERGIES: Please see below. PHYSICAL EXAMINATION ON DISCHARGE: VITAL SIGNS: Please see below. GENERAL: Comfortable, in no apparent distress HEENT: Head normocephalic, atraumatic NECK: Supple CARDIOVASCULAR EXAMINATION: Regular rate and rhythm RESPIRATORY EXAMINATION: Lungs clear to auscultation bilaterally ABDOMINAL EXAMINATION: Soft, non-tender, normal bowel sounds EXTREMITIES: No pitting edema bilaterally SKIN: Warm and dry NEUROLOGICAL EXAMINATION: CN 3-12 grossly intact PSYCHIATRIC EXAMINATION: Normal mood and affect LABORATORY DATA: Please see below. IMAGING: Radiologist interpretation KUB Large amount of left colonic stool. Barium Enema Limited Gastrografin enema demonstrates redundant but unobstructed sigmoid colon with no evidence of sigmoid volvulus or other colonic obstruction. There is a large amount of stool. PROGNOSIS: Good ACTIVITY: As tolerated. DIET: As tolerated DISCHARGE PLAN: Home DISPOSITION: 01 Home, Self-Care. DISCHARGE INSTRUCTIONS: 1. Follow up with PCP in 1 week 2. Follow up with general surgery in 1 week ITEMS TO FOLLOWUP ON ON OUTPATIENT: 1. Colonoscopy with general surgery DISCHARGE CONDITION: Stable. Total time spent on discharge planning, discharge summary, and medication reconciliation: 40 minutes Vital Signs/I&Os Vital Signs Date Time Temp Pulse Resp B/P (MAP) Pulse Ox O2 Delivery O2 Flow Rate FiO2 12/04/20 06:00 97.5 55 16 130/67 (88) 96 Room Air I&O- Last 24 Hours up to 6 AM 12/04/20 06:00 Intake Total 3660 ml Output Total 500 ml Balance 3160 ml Laboratory Data Labs 24H Laboratory Tests 2 12/04/20 06:51: Nucleated Red Blood Cells % (auto) 0.0, Anion Gap 4L, Glomerular Filtration Rate > 60.0, Calcium Level 8.2L CBC/BMP Laboratory Tests 12/04/20 06:51 Discharge Medications Scheduled Calcium Carbonate/Vitamin D3 (Calcium 500-Vit D3 200 Tablet) 1 Each Tablet, 1 TAB PO DAILY, (Reported) TAKES AT LUNCHTIME Cholecalciferol (Vitamin D3) (Vitamin D3) 125 Mcg Capsule, 125 MCG PO DAILY, (Reported) TAKES AT LUNCHTIME Cyanocobalamin (Vitamin B-12) (Vitamin B-12) 500 Mcg Tablet, 500 MCG PO DAILY, (Reported) TAKES AT LUNCHTIME Docusate Sodium (Dok) 100 Mg Capsule, 100 MG PO DAILY Pitavastatin Calcium (Livalo) 2 Mg Tablet, 2 MG PO QHS, (Reported) Allergies Coded Allergies: No Known Allergies (Verified Allergy, Unknown, 12/03/20) GUILLERMO BLAIR DO December 04, 2020 22:24
== END 2020-12-04 11:38 | disposition home or self-care (01) | DRG 390 ==
LOC: M MSPAV 03:45
PROVIDERS: ADMIT Family Medicine; ATTEND Internal Medicine
DX: K56.2 Volvulus (principal); R94.6 Abnormal results of thyroid function studies; E78.00 Pure hypercholesterolemia, unspecified; K59.00 Constipation, unspecified; Z79.899 Other long term (current) drug therapy

== ENCOUNTER → 2020-12-08 | Outpatient (REF) | payer MEDICARE ==
[~2020-12-08] MED LIST: DOK1CAP7 PO; LIVA2TAB PO; OYST500T92 PO; VITA500075 PO; VITA500T73 PO
[2020-12-08 13:54] LABS: BASO % 0.5 % (0.0-1.0); EOS # 0.1 10^3/uL (0.0-0.5); EOS % 1.5 % (0.0-3.0); LYMPH # 1.5 10^3/uL (1.5-5.0); LYMPH % 24.8 % (24.0-44.0); MEAN CORPUSCULAR HEMOGLOBIN 31.7 pg (27.0-33.0); MEAN CORPUSCULAR HGB CONC 33.3 g/dl (32.0-36.5); MEAN CORPUSCULAR VOLUME 95.1 fl (80.0-96.0); MONO # 0.5 10^3/uL (0.0-0.8); MONO % 8.1 % (2.0-8.0); NEUTROPHILS % 64.8 % (36.0-66.0); PLATELET COUNT, AUTOMATED 302 10^3/uL (150-450); WHITE BLOOD COUNT 6.2 10^3/uL (4.0-10.0)
[2020-12-08 14:41] LABS: BLOOD UREA NITROGEN 8 MG/DL (7-18); CALCIUM LEVEL 9.7 MG/DL (8.8-10.2); CARBON DIOXIDE LEVEL 30 MEQ/L (21-32); CHLORIDE LEVEL 105 MEQ/L (98-107); CREATININE FOR GFR 0.59 MG/DL (0.55-1.30); FERRITIN 32 NG/ML (8-252); FREE T4 0.91 NG/DL (0.76-1.46); GLOMERULAR FILTRATION RATE > 60.0 (>45); GLUCOSE, FASTING 97 MG/DL (70-100); IRON (FE) 57 UG/DL (50-170); PERCENT SATURATION 14.6 % (13.2-45.0); POTASSIUM SERUM 4.4 MEQ/L (3.5-5.1); SODIUM LEVEL 139 MEQ/L (136-145); TOTAL IRON BINDING CAPACITY 390 UG/DL (250-450)
[2020-12-08 14:58] LABS: VITAMIN B12 LEVEL 1925 PG/ML
[2020-12-08 14:59] LABS: FOLATE 18.6 NG/ML
== END ==
LOC: M SFHCPLAZ 10:44
PROVIDERS: ATTEND Nurse Practitioner Family
DX: D64.9 Anemia, unspecified (principal); R63.4 Abnormal weight loss

== ENCOUNTER → 2021-01-01 | Outpatient (REF) | payer MEDICARE ==
[2021-01-01 17:24] LABS: APPEARANCE, URINE CLEAR (CLEAR); BACTERIA, URINE AUTO NEGATIVE (NEGATIVE); BILIRUBIN, URINE AUTO NEGATIVE (NEGATIVE); BLOOD, URINE BLOOD NEGATIVE (NEGATIVE); COLOR, URINE STRAW (YELLOW); GLUCOSE, URINE (UA) AUTO NEGATIVE (NEGATIVE); KETONE, URINE AUTO NEGATIVE (NEGATIVE); LEUKOCYTE ESTERASE, URINE AUTO TRACE (NEGATIVE); NITRITE, URINE AUTO NEGATIVE (NEGATIVE); PROTEIN, URINE AUTO NEGATIVE (NEGATIVE); RBC, URINE AUTO 0 /HPF (0-3); SPECIFIC GRAVITY URINE AUTO 1.008 (1.002-1.035); SQUAMOUS EPITHELIAL CELL UR AU 0 /HPF (0-6); UROBILINOGEN, URINE AUTO 0.2 mg/dL (0.0-2.0); WBC, URINE AUTO 1 /HPF (0-3)
== END ==
LOC: M SFHCPLAZ 08:28
PROVIDERS: ATTEND Nurse Practitioner Family
DX: R63.4 Abnormal weight loss (principal)

== ENCOUNTER → 2021-01-01 | Outpatient (CLI) | payer MEDICARE ==
--- NOTE | 2021-01-01 10:19 | REP ---
INDICATION: R63.4, UNEXPLAINED WEIGHT LOSS. COMPARISON: None. FINDINGS: The superior mediastinal structures are midline. The cardiac silhouette is unremarkable in size, shape, and position. The diaphragmatic surfaces of the lungs are regular, and the costophrenic angles are clear. The pulmonary gonzalez are clear. The imaged osseous structures are intact. IMPRESSION: There is no acute cardiopulmonary disease. <Electronically signed by Eric Cra > 01/01/21 1016
== END ==
LOC: M CLY 08:32
PROVIDERS: ATTEND Nurse Practitioner Family
DX: R63.4 Abnormal weight loss (principal)

== ENCOUNTER → 2021-02-12 | Outpatient (CLI) | payer MEDICARE ==
[~2021-02-12] MED LIST changes: +CVS1CAP2 PO
== END ==
LOC: M LABSMTC 09:40
PROVIDERS: ATTEND Anesthesiology
DX: Z01.818 Encounter for other preprocedural examination (principal); Z11.52 Encounter for screening for COVID-19

== ENCOUNTER 2021-02-17 10:29 | Day surgery (SDC) | payer MEDICARE ==
[~2021-02-17] VITALS: Ht 165.1 cm; Wt 46.7 kg
[~2021-02-17 10:29] MED LIST changes: +DOK1CAP4 PO; -DOK1CAP7 PO; +NS 1,000 ML IV ONE
[2021-02-17] MEDS ORDERED: LIDOCAINE 2% 100MG/5ML SDV (FOR ANES.) As Ordered ONE (11:23)
[2021-02-17] MEDS ORDERED: propofoL 200 MG/20 ML VIAL As Ordered ONE ×2 (11:23→12:20)
--- NOTE | 2021-02-17 12:41 | ROOR ---
Patient Name: Dorita Hough Procedure Date: 02/17/2021 12:09 PM Date of : 1950 Age: 70 Room: [facility] Gender: Female Note Status: Finalized Procedure: Colonoscopy Indications: Abdominal pain in the left lower quadrant, Abnormal CT of the GI tract, Follow-up of volvulus Providers: Michelet Kennedy MD Referring MD: Zulma Strong NP Requesting Provider: Medicines: Monitored Anesthesia Care Complications: No immediate complications. Procedure: Pre-Anesthesia Assessment: - Prior to the procedure, a History and Physical was performed, and patient medications and allergies were reviewed. The patient is competent. The risks and benefits of the procedure and the sedation options and risks were discussed with the patient. All questions were answered and informed consent was obtained. Patient identification and proposed procedure were verified by the physician, the nurse and the anesthesiologist in the endoscopy suite. Mental Status Examination: alert and oriented. Airway Examination: normal oropharyngeal airway and neck mobility. Respiratory Examination: clear to auscultation. CV Examination: normal. Prophylactic Antibiotics: The patient does not require prophylactic antibiotics. Prior Anticoagulants: The patient has taken no previous anticoagulant or antiplatelet agents. ASA Grade Assessment: II - A patient with mild systemic disease. After reviewing the risks and benefits, the patient was deemed in satisfactory condition to undergo the procedure. The anesthesia plan was to use monitored anesthesia care (MAC). Immediately prior to administration of medications, the patient was re-assessed for adequacy to receive sedatives. The heart rate, respiratory rate, oxygen saturations, blood pressure, adequacy of pulmonary ventilation, and response to care were monitored throughout the procedure. The physical status of the patient was re-assessed after the procedure. The Colonoscope was introduced through the anus and advanced to the ascending colon. The colonoscopy was technically difficult and complex due to a redundant colon, significant looping and a tortuous colon. Successful completion of the procedure was aided by changing the patient to a supine position and applying abdominal pressure. The patient tolerated the procedure well. The quality of the bowel preparation was excellent. Findings: Hemorrhoids were found on perianal exam. Redundant colon at the sigmoid level and also at the transverse colon level, not able to get up to the cecum, was able to see the ileocecal valve but could not make it through the bend towards the cecal fold, despite abdominal pressure, repositioning, withdrawal of scope and reintroduction. No additional abnormalities were found on retroflexion. Impression: - Hemorrhoids found on perianal exam. - No specimens collected. Recommendation: - Discharge patient to home (ambulatory). - High fiber diet indefinitely. - Return to my office in 2 weeks. Procedure Code(s): --- Professional --- 32300, 53, Colonoscopy, flexible; diagnostic, including collection of specimen(s) by brushing or washing, when performed (separate procedure) Diagnosis Code(s): --- Professional --- K64.9, Unspecified hemorrhoids R10.32, Left lower quadrant pain K56.2, Volvulus R93.3, Abnormal findings on diagnostic imaging of other parts of digestive tract CPT copyright 2019 [employer]. All rights reserved. The codes documented in this report are preliminary and upon community support associate review may be revised to meet current compliance requirements. Michelet Kennedy MD Michelet Kennedy MD 02/17/2021 12:41:14 PM Electronically signed by Michelet Kennedy MD Number of Addenda: 0 Note Initiated On: 02/17/2021 12:09 PM Estimated Blood Loss: Estimated blood loss: none.
[2021-02-17 13:01] VITALS: BP 120/63
== END 2021-02-17 13:02 | disposition home or self-care (01) ==
LOC: M OPP 10:29
PROVIDERS: ATTEND Surgery
DX: K56.2 Volvulus (principal); K64.8 Other hemorrhoids; R10.32 Left lower quadrant pain; R93.3 Abnormal findings on diagnostic imaging of other parts of digestive tract; Z79.899 Other long term (current) drug therapy

== ENCOUNTER 2021-02-21 00:28 | Observation (INO) | payer MEDICARE ==
[~2021-02-21] VITALS: Ht 165.1 cm; Wt 55.3 kg
[~2021-02-21 00:28] MED LIST changes: -NS 1,000 ML IV ONE
[2021-02-21 01:00] LABS: BASO % 0.1 % (0.0-1.0); EOS # 0.1 10^3/uL (0.0-0.5); EOS % 0.4 % (0.0-3.0); HEMATOCRIT 35.5 % (36.0-47.0); HEMOGLOBIN 12.2 g/dl (12.0-15.5); LYMPH % 7.6 % (24.0-44.0); MEAN CORPUSCULAR HGB CONC 34.4 g/dl (32.0-36.5); MEAN CORPUSCULAR VOLUME 93.2 fl (80.0-96.0); MONO # 0.6 10^3/uL (0.0-0.8); MONO % 4.7 % (2.0-8.0); NEUTROPHILS # 11.7 10^3/uL (1.5-8.5); NEUTROPHILS % 86.8 % (36.0-66.0); PLATELET COUNT, AUTOMATED 259 10^3/uL (150-450); RED BLOOD COUNT 3.81 10^6/uL (4.00-5.40); WHITE BLOOD COUNT 13.4 10^3/uL (4.0-10.0)
[2021-02-21 01:40] LABS: ALBUMIN 3.9 GM/DL (3.2-5.2); ALT/SGPT 25 U/L (12-78); BILIRUBIN,DIRECT 0.1 MG/DL (0.0-0.2); BILIRUBIN,TOTAL 0.3 MG/DL (0.2-1.0); CK-MB VALUE MASS 4.6 NG/ML (<3.6); CPK CREATINE PHOSPHOKINASE 195 U/L (26-192); LIPASE 119 U/L (73-393); MB/CK RELATIVE INDEX 2.36 (< OR =4); TOTAL PROTEIN 6.6 GM/DL (6.4-8.2); TROPONIN I < 0.02 NG/ML (< 0.10)
[2021-02-21] MEDS ORDERED: ONDANSETRON 4MG/2ML VIAL IV ONE ×2 (02:00→06:15)
[2021-02-21] MEDS ORDERED: MORPHINE 4 MG/ML 1ML VIAL/SYRINGE (J2270) IV PRN (02:00)
[2021-02-21] MEDS: GASTROGRAFIN SOLUTION 30ML PO SCH ×2 (02:05→02:10)
[2021-02-21] MEDS ORDERED: NS 1,000 ML IV ONE (02:30)
[2021-02-21] MEDS ORDERED: ISOVUE-370 76% 100ML VIAL As Ordered ONE (02:57)
[2021-02-21] MEDS ORDERED: CO Q200C10 PO (05:50)
[2021-02-21] MEDS ORDERED: MM S100C PO (05:50)
[2021-02-21] MEDS ORDERED: CO Q100C10 PO (05:51)
[2021-02-21] MEDS ORDERED: CO-E100C3 PO (05:52)
[2021-02-21] MEDS ORDERED: HOME MED LIST COMPLETE! XX SCH (05:55)
[2021-02-21] MEDS ORDERED: LORazepam 2 MG/ML VIAL IV STA (06:12)
[2021-02-21 06:41] LABS: RSV AMPLIFICATION NEGATIVE (NEGATIVE)
[2021-02-21] MEDS ORDERED: KETOROLAC 30 MG/ML 1ML VIAL IV PRN (07:25)
[2021-02-21] MEDS ORDERED: MORPHINE 2 MG/ML 1ML VIAL (J2270) IV PRN (07:25)
[2021-02-21] MEDS ORDERED: ONDANSETRON 4MG/2ML VIAL IV PRN (07:25)
[2021-02-21] MEDS: LR 1,000 ML IV SCH ×2 (07:51→22:23)
[2021-02-21 11:00] VITALS: BP 117/64
[2021-02-21 14:00] VITALS: BP 117/63
[2021-02-21] MEDS ORDERED: LACTULOSE 20 GM/30 ML SYRUP UD NG ONE (14:25)
[2021-02-21] MEDS ORDERED: ACETAMINOPHEN *IV* 1,000 MG in IV 1 EA IV ONE (21:25)
[2021-02-21 22:00] VITALS: BP 118/59
[2021-02-22] VITALS (9 sets, daily range): BP systolic 114–151; BP diastolic 55–96
[2021-02-22 07:51] LABS: BASO % 0.5 % (0.0-1.0); EOS # 0.1 10^3/uL (0.0-0.5); EOS % 1.6 % (0.0-3.0); HEMATOCRIT 35.5 % (36.0-47.0); HEMOGLOBIN 11.6 g/dl (12.0-15.5); LYMPH # 1.7 10^3/uL (1.5-5.0); LYMPH % 27.4 % (24.0-44.0); MEAN CORPUSCULAR HGB CONC 32.7 g/dl (32.0-36.5); MEAN CORPUSCULAR VOLUME 94.9 fl (80.0-96.0); MONO # 0.5 10^3/uL (0.0-0.8); MONO % 8.3 % (2.0-8.0); NEUTROPHILS # 3.9 10^3/uL (1.5-8.5); NEUTROPHILS % 61.9 % (36.0-66.0); PLATELET COUNT, AUTOMATED 246 10^3/uL (150-450); RED BLOOD COUNT 3.74 10^6/uL (4.00-5.40); WHITE BLOOD COUNT 6.2 10^3/uL (4.0-10.0)
[2021-02-22 08:17] LABS: BLOOD UREA NITROGEN 5 MG/DL (7-18); CALCIUM LEVEL 8.5 MG/DL (8.8-10.2); CARBON DIOXIDE LEVEL 31 MEQ/L (21-32); CHLORIDE LEVEL 106 MEQ/L (98-107); CREATININE FOR GFR 0.65 MG/DL (0.55-1.30); GLOMERULAR FILTRATION RATE > 60.0 (>45); GLUCOSE, FASTING 85 MG/DL (70-100); POTASSIUM SERUM 4.1 MEQ/L (3.5-5.1); SODIUM LEVEL 140 MEQ/L (136-145)
[2021-02-22] MEDS: LR 1,000 ML IV SCH ×2 (11:51→23:25)
[2021-02-22] MEDS ORDERED: BUPIVACAINE HCL 0.25% 30ML VIAL As Ordered ONE (14:01)
[2021-02-22] MEDS ORDERED: MIDAZOLAM INJ 2MG/2ML VIAL (J2250 PER 1MG) As Ordered ONE (14:03)
[2021-02-22] MEDS ORDERED: fentaNYL 100 MCG/2 ML INJECTION (J3010) As Ordered ONE ×2 (14:04→15:25)
[2021-02-22] MEDS ORDERED: SUCCINYLCHOLINE 100 MG/5 ML SYRINGE (J0330) As Ordered ONE (14:55)
[2021-02-22] MEDS ORDERED: ACETAMINOPHEN 1000MG 100ML IV BTL (OFIRMEV) (J0131 PER 10MG) As Ordered ONE (14:56)
[2021-02-22] MEDS ORDERED: LIDOCAINE 2% 100MG/5ML SDV (FOR ANES.) As Ordered ONE (14:58)
[2021-02-22] MEDS ORDERED: propofoL 200 MG/20 ML VIAL As Ordered ONE (14:58)
[2021-02-22] MEDS ORDERED: ZOSYN 3.375GM VIAL As Ordered ONE (14:58)
[2021-02-22] MEDS ORDERED: METOCLOPRAMIDE INJ 10MG/2ML VIAL (J2765 PER 1) As Ordered ONE (15:09)
[2021-02-22] MEDS ORDERED: GLYCOPYRROLATE INJ 0.2 MG/ML 2 ML VIAL As Ordered ONE (15:16)
[2021-02-22] MEDS ORDERED: SEVOFLURANE INHAL SOLN 250 ML BTL As Ordered ONE (15:23)
[2021-02-22] MEDS ORDERED: ROCURONIUM BROMIDE 50 MG/5 ML VIAL As Ordered ONE ×2 (15:51→17:56)
[2021-02-22] MEDS ORDERED: HYDROmorphone HCL 2MG/ML 1ML VIAL As Ordered ONE (18:01)
[2021-02-22] MEDS ORDERED: SUGAMMADEX SODIUM 500 MG/5 ML VIAL (BRIDION) As Ordered ONE (19:02)
[2021-02-22] MEDS ORDERED: ONDANSETRON 4MG/2ML VIAL As Ordered ONE (19:11)
[2021-02-22] MEDS ORDERED: NORCO, ANEXSIA 5/325MG TABLET (HYDROcodone/ACETAMINOPHEN) PO PRN (19:40)
[2021-02-22] MEDS ORDERED: PERCOCET 5MG/325MG TAB PO PRN (19:45)
[2021-02-22] MEDS ORDERED: LR 1,000 ML IV SCH (19:45)
[2021-02-22] MEDS ORDERED: fentaNYL 100 MCG/2 ML INJECTION (J3010) IV PRN (19:45)
[2021-02-22] MEDS ORDERED: METOCLOPRAMIDE INJ 10MG/2ML VIAL (J2765 PER 1) IV PRN (19:45)
[2021-02-22] MEDS ORDERED: ONDANSETRON 4MG/2ML VIAL IV PRN (19:45)
[2021-02-23 00:45] VITALS: BP 113/54
[2021-02-23 01:45] VITALS: BP 113/53
[2021-02-23 06:00] VITALS: BP 129/54
[2021-02-23] MEDS: KETOROLAC 30 MG/ML 1ML VIAL IV PRN ×2 (06:24→19:05)
[2021-02-23 07:09] LABS: BASO % 0.1 % (0.0-1.0); HEMATOCRIT 30.8 % (36.0-47.0); HEMOGLOBIN 10.6 g/dl (12.0-15.5); LYMPH # 0.9 10^3/uL (1.5-5.0); MEAN CORPUSCULAR HEMOGLOBIN 31.9 pg (27.0-33.0); MEAN CORPUSCULAR HGB CONC 34.4 g/dl (32.0-36.5); MEAN CORPUSCULAR VOLUME 92.8 fl (80.0-96.0); MONO # 0.5 10^3/uL (0.0-0.8); MONO % 5.5 % (2.0-8.0); NEUTROPHILS # 7.8 10^3/uL (1.5-8.5); NEUTROPHILS % 84.1 % (36.0-66.0); PLATELET COUNT, AUTOMATED 206 10^3/uL (150-450); RED BLOOD COUNT 3.32 10^6/uL (4.00-5.40); WHITE BLOOD COUNT 9.2 10^3/uL (4.0-10.0)
[2021-02-23] MEDS: DOCUSATE SODIUM 100MG CAPSULE PO SCH (09:17)
[2021-02-23] MEDS: ENOXAPARIN 40MG/0.4ML SYRINGE (J1650 PER 10MG) SC SCH (09:18)
[2021-02-23 10:00] VITALS: BP 131/66
[2021-02-23] MEDS: LR 1,000 ML IV SCH (10:00)
[2021-02-23] MEDS: ACETAMINOPHEN TAB 650MG DOSE (2X325MG) PO PRN (11:06)
[2021-02-23 14:00] VITALS: BP 127/71
[2021-02-23 20:14] VITALS: BP 114/58
[2021-02-24] MEDS: ACETAMINOPHEN TAB 650MG DOSE (2X325MG) PO PRN (05:14)
[2021-02-24 06:00] VITALS: BP 133/62
[2021-02-24] MEDS: ENOXAPARIN 40MG/0.4ML SYRINGE (J1650 PER 10MG) SC SCH (09:00)
[2021-02-24] MEDS: DOCUSATE SODIUM 100MG CAPSULE PO SCH (09:02)
[2021-02-24] MEDS ORDERED: ACET1TAB55 PO (09:06)
== END 2021-02-24 11:30 | disposition home or self-care (01) ==
LOC: M ED 00:28 → M ED INP 00:29 → ENRESERV 07:56 → M MS5PR 09:57
PROVIDERS: ADMIT Surgery; ATTEND Surgery
DX: K56.2 Volvulus (principal); E03.9 Hypothyroidism, unspecified; E78.5 Hyperlipidemia, unspecified; Z79.890 Hormone replacement therapy; Z79.899 Other long term (current) drug therapy; Z90.710 Acquired absence of both cervix and uterus
CPT/HCPCS: 36415; 44205; 74018; 74177; 80047; 80048; 80076; 82550; 82553; 83690; 84484; 85025; 87631; 88307; 93005; 93041; 96360; 96374; 96375; 96376; 99285; G0378; J0131; J0330; J1170; J1650; J1885; J2060; J2250; J2270; J2405; J2543; J2765; J3010; Q9963; Q9967; S2900

== ENCOUNTER → 2021-04-08 | Outpatient (CLI) | payer MEDICARE ==
[~2021-04-08] MED LIST changes: +ACET1TAB55 PO; +CO Q100C10 PO; +CO Q200C10 PO; +CO-E100C3 PO; +MM S100C PO
--- NOTE | 2021-04-08 09:17 | REPMRS ---
Patient History The patient states she had a clinical breast exam in March 2021. Family history of breast cancer at age 50 or over in paternal cousin, colorectal cancer under age 50 in maternal cousin. Took hormonal contraceptives for 1 year. Patient states no breast complaints today. Patient has signed MRS History Sheet. Digital Woman Screen Mammo: April 08, 2021 - Exam #: [id number] Bilateral CC and MLO view(s) were taken. Technologist: Dorita Griggs, Technologist Prior study comparison: February 11, 2020, bilateral digital woman screen mammo performed at [facility]. October 01, 2018, bilateral digital woman screen mammo performed at [facility]. September 21, 2017, digital woman screen mammo performed at [facility]. FINDINGS: The breast tissue is heterogeneously dense. This may lower the sensitivity of mammography. The Volpara volumetric breast density category is: C. There is a moderate amount of heterogeneously dense fibroglandular tissue which is fairly symmetric. There is no interval development of dominant mass, architectural distortion, or grouped microcalcification typical of malignancy. There has been no change in the appearance of the mammogram from the prior studies. 3-D tomosynthesis shows no additional findings. Assessment: BI-RADS/ACR category 1 mammogram. Negative Mammogram. Recommendation Routine screening mammogram of both breasts in 1 year (for women over age 40). This patient's [facility] [address] [facility] Lifetime Breast Cancer RIsk is estimated at 5.9 %. This mammogram was interpreted with the aid of an FDA-approved computer-aided dectection system. Electronically Signed By: Marcelo Gaspar MD 04/08/21 0916
== END ==
LOC: M WHC 07:40
PROVIDERS: ATTEND Nurse Practitioner Women's Health
DX: Z01.419 Encounter for gynecological examination (general) (routine) without abnormal findings (principal); Z90.710 Acquired absence of both cervix and uterus; Z12.31 Encounter for screening mammogram for malignant neoplasm of breast; Z80.3 Family history of malignant neoplasm of breast
CPT/HCPCS: 77063; 77067; G0101

== ENCOUNTER → 2021-04-12 | Outpatient (REF) | payer MEDICARE ==
[2021-04-12 13:25] LABS: ALBUMIN 3.8 GM/DL (3.2-5.2); ALT/SGPT 22 U/L (12-78); BILIRUBIN,TOTAL 0.5 MG/DL (0.2-1.0); BLOOD UREA NITROGEN 9 MG/DL (7-18); CALCIUM LEVEL 8.8 MG/DL (8.8-10.2); CARBON DIOXIDE LEVEL 31 MEQ/L (21-32); CHLORIDE LEVEL 105 MEQ/L (98-107); CHOLESTEROL LEVEL 152 MG/DL (<200); CHOLESTEROL RISK RATIO 2.338 (<5); CREATININE FOR GFR 0.62 MG/DL (0.55-1.30); GLOMERULAR FILTRATION RATE > 60.0 (>45); GLUCOSE, FASTING 89 MG/DL (70-100); HDL CHOLESTEROL 65 MG/DL (>40); LDL CHOLESTEROL 71 MG/DL (<100); NON-HDL-C 87 MG/DL; SODIUM LEVEL 139 MEQ/L (136-145); TOTAL PROTEIN 6.7 GM/DL (6.4-8.2); TRIGLYCERIDES LEVEL 81 MG/DL (<150)
[2021-04-12 13:30] LABS: TOTAL 25(OH) VITAMIN D 72.3 NG/ML (30.0-100.0)
== END ==
LOC: M SFHCCLAY 08:27
PROVIDERS: ATTEND Nurse Practitioner Family
DX: E78.2 Mixed hyperlipidemia (principal); E55.9 Vitamin D deficiency, unspecified

== ENCOUNTER → 2022-04-04 | Outpatient (REF) | payer MEDICARE ==
[2022-04-04 13:02] LABS: ALT/SGPT 23 U/L (12-78); BILIRUBIN,TOTAL 0.5 MG/DL (0.2-1.0); BLOOD UREA NITROGEN 9 MG/DL (7-18); CALCIUM LEVEL 8.9 MG/DL (8.8-10.2); CARBON DIOXIDE LEVEL 30 MEQ/L (21-32); CHLORIDE LEVEL 104 MEQ/L (98-107); CHOLESTEROL LEVEL 180 MG/DL (<200); CREATININE FOR GFR 0.63 MG/DL (0.55-1.30); GLOMERULAR FILTRATION RATE > 60.0 (>39); GLUCOSE, FASTING 89 MG/DL (70-100); HDL CHOLESTEROL 80 MG/DL (>40); NON-HDL-C 100 MG/DL; POTASSIUM SERUM 4.2 MEQ/L (3.5-5.1); SODIUM LEVEL 138 MEQ/L (136-145); TRIGLYCERIDES LEVEL 62 MG/DL (<150)
[2022-04-04 13:03] LABS: ALBUMIN 3.9 GM/DL (3.2-5.2); LDL CHOLESTEROL 88 MG/DL (<100); TOTAL PROTEIN 6.8 GM/DL (6.4-8.2)
[2022-04-04 14:10] LABS: TOTAL 25(OH) VITAMIN D 74.6 NG/ML (30.0-100.0)
== END ==
LOC: M SFHCCLAY 08:30
PROVIDERS: ATTEND Nurse Practitioner Adult Health
DX: E78.2 Mixed hyperlipidemia (principal); E55.9 Vitamin D deficiency, unspecified; Z13.29 Encounter for screening for other suspected endocrine disorder

== ENCOUNTER → 2022-05-19 | Outpatient (CLI) | payer MEDICARE | LOC: M CARPUL 11:37 | PROVIDERS: ATTEND Nurse Practitioner Adult Health | DX: I05.9 Rheumatic mitral valve disease, unspecified (principal) ==

== ENCOUNTER → 2022-06-20 | Outpatient (CLI) | payer MEDICARE | LOC: M WHC 10:50 | PROVIDERS: ATTEND Nurse Practitioner Family | DX: Z12.31 Encounter for screening mammogram for malignant neoplasm of breast (principal) ==

== ENCOUNTER → 2022-10-13 | Outpatient (REF) | payer MEDICARE ==
[2022-10-13 12:26] LABS: ALBUMIN 3.9 G/DL (3.2-5.2); ALKALINE PHOSPHATASE 79 U/L (46-116); ALT/SGPT 18 U/L (7.0-40); AST/SGOT 21 U/L (<34); BILIRUBIN,TOTAL 0.8 MG/DL (0.3-1.2); BLOOD UREA NITROGEN 8 MG/DL (9-23); CARBON DIOXIDE LEVEL 29 MMOL/L (20-31); CHLORIDE LEVEL 101 MMOL/L (98-107); CHOLESTEROL LEVEL 163 MG/DL (<200); CHOLESTEROL RISK RATIO 2.32 (<5); CREATININE FOR GFR 0.63 MG/DL (0.55-1.30); FOLATE > 24.0 NG/ML (>5.4); GLOMERULAR FILTRATION RATE > 60.0 (>39); GLUCOSE, FASTING 87 MG/DL (74-106); LDL CHOLESTEROL 79.4 MG/DL (<100); POTASSIUM SERUM 4.7 MMOL/L (3.5-5.1); SODIUM LEVEL 136 MMOL/L (136-145); TOTAL 25(OH) VITAMIN D 69.4 NG/ML (20.0-100.0); TOTAL PROTEIN 6.6 G/DL (5.7-8.2); TRIGLYCERIDES LEVEL 68 MG/DL (<150); VITAMIN B12 LEVEL 981 PG/ML (211-911)
== END ==
LOC: M SFHCCLAY 07:31
PROVIDERS: ATTEND Nurse Practitioner Adult Health
DX: E78.2 Mixed hyperlipidemia (principal); Z13.29 Encounter for screening for other suspected endocrine disorder; E55.9 Vitamin D deficiency, unspecified; D64.9 Anemia, unspecified

== ENCOUNTER → 2023-07-21 | Outpatient (CLI) | payer MEDICARE | LOC: M WHC 08:16 | PROVIDERS: ATTEND Nurse Practitioner Family | DX: Z12.31 Encounter for screening mammogram for malignant neoplasm of breast (principal) ==

== ENCOUNTER → 2023-09-06 | Outpatient (CLI) | payer MEDICARE | LOC: M PLAIMG 08:00 | PROVIDERS: ATTEND Nurse Practitioner Adult Health | DX: M25.562 Pain in left knee (principal) ==

== ENCOUNTER → 2023-09-11 | Outpatient (CLI) | payer MEDICARE | LOC: M RAD 14:51 | PROVIDERS: ATTEND Nurse Practitioner Adult Health | DX: M79.662 Pain in left lower leg (principal); R22.42 Localized swelling, mass and lump, left lower limb ==

== ENCOUNTER → 2024-04-15 | Outpatient (REF) | payer MEDICARE ==
[2024-04-15 14:59] LABS: FOLATE > 24.0 NG/ML (>5.4); THYROID STIMULATING HORMONE 1.806 uIU/ML (0.55-4.78); TOTAL 25(OH) VITAMIN D 72.3 NG/ML (20.0-100.0)
[2024-04-15 15:00] LABS: FERRITIN 30.8 NG/ML (7.3-270.7)
[2024-04-15 15:01] LABS: ALBUMIN 3.9 G/DL (3.2-5.2); ALKALINE PHOSPHATASE 74 U/L (46-116); ALT/SGPT 17 U/L (7.0-40); AST/SGOT 18 U/L (<34); BILIRUBIN,TOTAL 0.8 MG/DL (0.3-1.2); BLOOD UREA NITROGEN 9 MG/DL (9-23); CALCIUM LEVEL 9.6 MG/DL (8.3-10.6); CARBON DIOXIDE LEVEL 28 MMOL/L (20-31); CHLORIDE LEVEL 101 MMOL/L (98-107); CHOLESTEROL LEVEL 187 MG/DL (<200); CHOLESTEROL RISK RATIO 2.72 (<5); CREATININE FOR GFR 0.61 MG/DL (0.55-1.30); FREE T4 1.14 NG/DL (0.89-1.76); GLOMERULAR FILTRATION RATE > 60.0 (>39); GLUCOSE, FASTING 97 MG/DL (74-106); HDL CHOLESTEROL 68.6 MG/DL (>40); IRON (FE) 108 UG/DL (50-170); LDL CHOLESTEROL 102.6 MG/DL (<100); NON-HDL-C 118.4 MG/DL; PERCENT SATURATION 28.1 % (13.2-45.0); POTASSIUM SERUM 4.3 MMOL/L (3.5-5.1); SODIUM LEVEL 135 MMOL/L (136-145); TOTAL IRON BINDING CAPACITY 385 UG/DL (250-425); TOTAL PROTEIN 6.6 G/DL (5.7-8.2); TRIGLYCERIDES LEVEL 79 MG/DL (<150)
[2024-04-15 15:02] LABS: VITAMIN B12 LEVEL 1411 PG/ML (211-911)
[2024-04-15 15:18] LABS: BASO % 0.4 % (0.0-1.0); EOS # 0.1 10^3/uL (0.0-0.5); EOS % 1.7 % (0.0-3.0); HEMATOCRIT 37.1 % (36.0-47.0); HEMOGLOBIN 12.6 g/dl (12.0-15.5); LYMPH # 1.5 10^3/uL (1.5-5.0); LYMPH % 30.9 % (24.0-44.0); MEAN CORPUSCULAR HEMOGLOBIN 31.7 pg (27.0-33.0); MEAN CORPUSCULAR VOLUME 93.2 fl (80.0-96.0); MONO # 0.4 10^3/uL (0.0-0.8); MONO % 8.7 % (2.0-8.0); NEUTROPHILS # 2.7 10^3/uL (1.5-8.5); NEUTROPHILS % 58.1 % (36.0-66.0); PLATELET COUNT, AUTOMATED 256 10^3/uL (150-450); RED BLOOD COUNT 3.98 10^6/uL (4.00-5.40); WHITE BLOOD COUNT 4.7 10^3/uL (4.0-10.0)
== END ==
LOC: M SFHCPLAZ 08:11
PROVIDERS: ATTEND Nurse Practitioner Adult Health
DX: D64.9 Anemia, unspecified (principal); E78.2 Mixed hyperlipidemia; R63.4 Abnormal weight loss; E55.9 Vitamin D deficiency, unspecified

== ENCOUNTER → 2024-10-10 | Outpatient (CLI) | payer MEDICARE | LOC: M RAD 12:23 | PROVIDERS: ATTEND Physician Assistant | DX: M54.16 Radiculopathy, lumbar region (principal) ==

== ENCOUNTER → 2024-10-22 | Outpatient (CLI) | payer MEDICARE | LOC: M WHC 07:53 | PROVIDERS: ATTEND Nurse Practitioner Adult Health | DX: Z12.31 Encounter for screening mammogram for malignant neoplasm of breast (principal) ==

== ENCOUNTER → 2025-04-18 | Outpatient (REF) | payer MEDICARE ==
[2025-04-18 14:04] LABS: PLATELET COUNT, AUTOMATED 315 10^3/uL (150-450)
[2025-04-18 14:14] LABS: ALT/SGPT 27 U/L (7.0-40); AST/SGOT 31 U/L (<34); CALCIUM LEVEL 8.9 MG/DL (8.3-10.6); CARBON DIOXIDE LEVEL 27 MMOL/L (20-31); CHLORIDE LEVEL 99 MMOL/L (98-107); CHOLESTEROL LEVEL 184 MG/DL (<200); CHOLESTEROL RISK RATIO 2.25 (<5); CREATININE FOR GFR 0.59 MG/DL (0.55-1.30); FREE T4 1.11 NG/DL (0.89-1.76); GLOMERULAR FILTRATION RATE > 90.0 (>39); LDL CHOLESTEROL 88.9 MG/DL (<100); NON-HDL-C 102.5 MG/DL; POTASSIUM SERUM 3.9 MMOL/L (3.5-5.1); SODIUM LEVEL 135 MMOL/L (136-145); TOTAL 25(OH) VITAMIN D 74.4 NG/ML (20.0-100.0); TRIGLYCERIDES LEVEL 68 MG/DL (<150); VITAMIN B12 LEVEL 773 PG/ML (211-911)
== END ==
LOC: M SFHCPLAZ 09:18
PROVIDERS: ATTEND Nurse Practitioner Adult Health
DX: E78.2 Mixed hyperlipidemia (principal); R00.2 Palpitations; D64.9 Anemia, unspecified; R63.4 Abnormal weight loss; E55.9 Vitamin D deficiency, unspecified

== ENCOUNTER → 2025-05-01 | Outpatient (REF) | payer MEDICARE | LOC: M LAB REF 15:52 | PROVIDERS: ATTEND Surgery | DX: L72.0 Epidermal cyst (principal) ==